=== PATIENT | male | born 1970 | race Caucasian/White ===

== ENCOUNTER 2019-02-09 05:57 | Day surgery (SDC) | payer OTHER, SELFPAY ==
[2019-02-09] VITALS (9 sets, daily range): BP systolic 70–153; BP diastolic 35–95; PULSE 75–107; RESP 16; TEMP 35.9–36.3; O2SAT 94–100; BMI 30.2
--- NOTE | 2019-02-09 06:28 | PCM.HP.STD ---
Problem List (1) Screening for intestinal cancer Status: Acute History of Present Illness Date of Admission: 02/09/19 The patient is a 48 year old M who presents for screening colonoscopy today. He has never had a prior one. He has no symptoms. No bright red blood per rectum or melena. He enjoys good health. There is no family history of colon cancer. No abdominal pain. Past Medical History Allergies Penicillins [PCN] Allergy (Verified 02/08/19 08:22) Hives Sulfa (Sulfonamide Antibiotics) Allergy (Verified 02/08/19 08:22) Hives Home Medications: Ambulatory Orders Medication Instructions Recorded NK 02/08/19 Smoking Status: Never smoker Tobacco Use: Non-smoker Review of Systems Constitutional: Denies: Anorexia Cardiovascular: Denies: Chest Pain Endocrine: Denies: Change in Body Habitus VTE Information - Inpt Only VTE Present on Admission: No Patient Problems: Active and Suspected Problems Screening for intestinal cancer (Acute) - Physical Exam General: Alert, Oriented x3, Cooperative Oral: Moist Mucosa Neck: Supple Lungs: Clear to auscultation, Normal air movement Cardiovascular: Regular rate, Regular Rhythm Abdomen: Bowel Sounds Present, Soft, Non Tender Extremities: No Calf Tenderness Neurological: - - Normal cognition Psych/Mental Status: Normal Affect Assessment/Plan All Active Problems Screening for intestinal cancer (Acute) The patient presents at age 48 for screening colonoscopy. He presents via our open access program. We have discussed the technique, benefits, risks, alternatives of a screening colonoscopy with possible biopsy or polypectomy is indicated. He has had an opportunity to ask and have questions answered. We will proceed as noted. Ramesh Mcneill M.D., F.A.C.S.
[2019-02-09] MEDS: Lactated Ringers 1,000 ML 100 ML IV (06:34)
--- NOTE | 2019-02-09 07:48 | OP.COLON_ITS ---
Patient Name: Devin Joseph Procedure Date: 02/09/2019 7:24 AM Date of : 1970 Age: 48 Procedure: Colonoscopy Indications: Screening for colorectal malignant neoplasm Providers: Ramesh Mcneill MD Referring MD: Juwan Dowling Medicines: Midazolam 5 mg IV, Meperidine 100 mg IV Patient Profile: Last Colonoscopy: none. The patient's first colonoscopy is today. Complications: No immediate complications. Procedure: Pre-Anesthesia Assessment: - Prior to the procedure, a History and Physical was performed, and patient medications and allergies were reviewed. The patient's tolerance of previous anesthesia was also reviewed. The risks and benefits of the procedure and the sedation options and risks were discussed with the patient. All questions were answered, and informed consent was obtained. Prior Anticoagulants: The patient has taken no previous anticoagulant or antiplatelet agents. ASA Grade Assessment: II - A patient with mild systemic disease. After reviewing the risks and benefits, the patient was deemed in satisfactory condition to undergo the procedure. After I obtained informed consent, the scope was passed under direct vision. Throughout the procedure, the patient's blood pressure, pulse, and oxygen saturations were monitored continuously. The colonoscope was introduced through the anus and advanced to the cecum, identified by appendiceal orifice and ileocecal valve. The colonoscopy was performed without difficulty. The patient tolerated the procedure well. The quality of the bowel preparation was good. The ileocecal valve was photographed. Moderate Sedation: Moderate (conscious) sedation was personally administered by the endoscopist. The following parameters were monitored: oxygen saturation, heart rate, blood pressure, and response to care. Total physician intraservice time was 15 minutes. Scope In: 7:33:42 AM Scope Withdrawal Time 0 hours 6 minutes 2 seconds Scope Out: 7:43:38 AM Total Procedure Duration Time 0 hours 9 minutes 56 seconds Findings: The perianal and digital rectal examinations were normal. A few diverticula were found in the sigmoid colon. The exam was otherwise without abnormality. Impression: - Diverticulosis in the sigmoid colon. - The examination was otherwise normal. - No specimens collected. Recommendation: - Discharge patient to home. - Resume previous diet. - Continue present medications. - Repeat colonoscopy in 10 years for screening purposes. Procedure Code(s): --- Professional --- 31195, Colonoscopy, flexible; diagnostic, including collection of specimen(s) by brushing or washing, when performed (separate procedure) 86030, 59, Moderate sedation services provided by the same physician or other qualified health hearing healthcare practitioner performing the diagnostic or therapeutic service that the sedation supports, requiring the presence of an independent trained observer to assist in the monitoring of the patient's level of consciousness and physiological status; initial 15 minutes of intraservice time, patient age 5 years or older Diagnosis Code(s): --- Professional --- Z12.11, Encounter for screening for malignant neoplasm of colon K57.30, Diverticulosis of large intestine without perforation or abscess without bleeding CPT copyright 2017 [employer]. All rights reserved. The codes documented in this report are preliminary and upon live study manager review may be revised to meet current compliance requirements. Ramesh Mcneill MD 02/09/2019 7:48:14 AM This report has been signed electronically. Number of Addenda: 0 Note Initiated On: 02/09/2019 7:24 AM
== END 2019-02-09 08:22 | disposition home or self-care (01) ==
LOC: EN 05:58 → AC 06:01
PROVIDERS: Family Provider Family Medicine; PCP Family Medicine; Referring Provider Family Medicine; Visit Provider Surgery
PROC: 0DJD8ZZ Inspection of Lower Intestinal Tract, Via Natural or Artificial Opening Endoscopic (ICD-10-PCS; CPT 45378; principal; 2019-02-09 06:55)
DX: Z12.11 Encounter for screening for malignant neoplasm of colon (principal); K57.30 Diverticulosis of large intestine without perforation or abscess without bleeding
CPT/HCPCS: 45378; 99152; 99153; J7120